=== PATIENT | female | born 1950 | race Caucasian/White ===

== ENCOUNTER → 2018-01-16 | Outpatient (CLI) | payer OTHER ==
[~2018-01-16] MED LIST: MULT-658 PO; None per pt
[2018-01-16 09:44] LABS: BASOPHILS # (AUTO) 0.03 x10^3/uL (0-0.1); BASOPHILS % (AUTO) 1 % (0-1); EOSINOPHILS # (AUTO) 0.15 x10^3/uL (0-0.4); EOSINOPHILS % (AUTO) 3 % (1-7); LYMPHOCYTES # (AUTO) 1.31 x10^3/uL (1-3.4); LYMPHOCYTES % (AUTO) 24 % (22-44); MD NO; MEAN CORPUSCULAR HEMOGLOBIN 32.5 pg (27.0-34.8); MEAN CORPUSCULAR HGB CONC 34.5 g/dL (32.4-35.8); MEAN CORPUSCULAR VOLUME 94.4 fL (80-100); MEAN PLATELET VOLUME 7.3 fL (7.4-10.4); MONOCYTES # (AUTO) 0.56 x10^3/uL (0.2-0.8); MONOCYTES % (AUTO) 11 % (2-9); NEUTROPHILS % (AUTO) 62 % (42-75); PLATELET COUNT 282 x10^3/uL (130-400); RED BLOOD COUNT 4.81 x10^6/uL (3.82-5.3)
[2018-01-16 10:01] LABS: ANION GAP 6 mmol/L (5-15); CALCIUM 9.9 mg/dL (8.5-10.1); CHLORIDE 101 mmol/L (98-107); CREATININE 0.78 mg/dL (0.55-1.02)
[2018-01-16 10:03] LABS: MICROSCOPIC INDICATED
[2018-01-16 10:08] LABS: INTERNATIONAL NORMALIZED RATIO 0.95 (0.93-1.1); PROTHROMBIN TIME 9.8 Seconds (9.6-11.5)
[2018-01-16 10:09] LABS: CULTURE INDICATED? YES
[2018-01-16 13:12] LABS: HEMOGLOBIN A1C 4.7 % (4.2-6.3)
== END | disposition home or self-care (01) ==
LOC: MERGE 08:30 → STAR 08:30
PROVIDERS: ATTEND Orthopaedic Surgery
DX: Z01.818 Encounter for other preprocedural examination (principal); M17.11 Unilateral primary osteoarthritis, right knee
CPT/HCPCS: 36415; 80048; 81001; 83036; 85025; 85610; 85730; 87081; 87086; 87806; 93005; G0475

== ENCOUNTER 2018-01-29 06:04 | Inpatient (IN) | payer OTHER ==
[~2018-01-29] VITALS: Ht 165.1 cm; Wt 62.1 kg
[2018-01-29] MEDS ORDERED: TRANEXAMIC ACID 100 MG/ML, 10ML ONE ×4 (06:49)
[2018-01-29] MEDS ORDERED: ROPIvacaine/PF 0.2%, 20 ML ONE (06:49)
[2018-01-29] MEDS ORDERED: KETOROLAC 60 MG/2 ML ONE (06:49)
[2018-01-29] MEDS ORDERED: EPINEPHRINE 1 MG/ML, 1ML ONE (06:50)
[2018-01-29] MEDS ORDERED: VANCOMYCIN PER PHARMACY MC ONE (06:58)
[2018-01-29] MEDS ORDERED: LACTATED RINGERS 1,000 ML IV SCH (07:02)
[2018-01-29] MEDS ORDERED: VANCOMYCIN PMX 1GM/200ML 200 ML IV ONE (07:30)
[2018-01-29] MEDS ORDERED: ACETAMINOPHEN 500 MG TABLET PO ONE (07:30)
[2018-01-29] MEDS ORDERED: PNEUMOCOCCAL VACC.PER PHARMACY IM ONE (07:30)
[2018-01-29] MEDS ORDERED: GABAPENTIN 300 MG CAPSULE PO ONE (07:30)
[2018-01-29] MEDS ORDERED: MIDAZOLAM 1 MG/ML, 2ML ONE (07:56)
[2018-01-29] MEDS ORDERED: FENTANYL PF 100 MCG/2ML ONE (07:57)
[2018-01-29] MEDS ORDERED: ONDANSETRON ODT 8 MG PO ONE (08:00)
[2018-01-29] MEDS ORDERED: OXYcodone IR 5MG TABLET PO ONE (08:00)
[2018-01-29] MEDS ORDERED: FAMOTIDINE 20 MG TABLET PO ONE (08:00)
[2018-01-29] MEDS ORDERED: DEXAMETHASONE 4 MG/ML, 1ML ONE (08:52)
[2018-01-29] MEDS ORDERED: CEFAZOLIN 1,000 MG ONE (08:52)
[2018-01-29] MEDS ORDERED: PROPOFOL 10 MG/ML, 20ML ONE (08:52)
[2018-01-29] MEDS ORDERED: ONDANSETRON 4 MG TABLET PO PRN (10:30)
[2018-01-29] MEDS ORDERED: HYDROcodone/APAP 7.5-325MG/15ML UDC PO PRN (10:30)
[2018-01-29] MEDS ORDERED: ALBUTEROL SULFATE 2.5 MG/3 ML NPPB PRN (10:30)
[2018-01-29] MEDS ORDERED: MEPERIDINE/PF 25MG/0.5ML IVPush PRN (10:30)
[2018-01-29] MEDS ORDERED: OXYcodone IR 5MG TABLET PO PRN (10:30)
[2018-01-29] MEDS ORDERED: hydrALAzine 20 MG/ML, 1ML IV PRN (10:30)
[2018-01-29] MEDS ORDERED: PROMETHAZINE 25 MG/ML, 1ML IV PRN (10:30)
[2018-01-29] MEDS ORDERED: DIPHENHYDRAMINE 50 MG CAPSULE PO PRN (10:30)
[2018-01-29] MEDS ORDERED: MIDAZOLAM 1 MG/ML, 2ML IV PRN (10:30)
[2018-01-29] MEDS ORDERED: LABETALOL 5MG/ML, 20ML IV PRN (10:30)
[2018-01-29] MEDS ORDERED: ONDANSETRON ODT 8 MG PO PRN (10:30)
[2018-01-29] MEDS ORDERED: HYDROmorphone 1 MG/ML, 1ML IV PRN ×2 (10:30)
[2018-01-29] MEDS ORDERED: TRANEXAMIC ACID 1,000 MG in SODIUM CHLORIDE 0.9% 100 ML IVPB ONE (10:30)
[2018-01-29] MEDS ORDERED: ONDANSETRON 2MG/ML, 2ML IV PRN (10:30)
[2018-01-29] MEDS ORDERED: FENTANYL PF 100 MCG/2ML IV PRN (10:30)
[2018-01-29] MEDS ORDERED: OXYcodone 5 MG/5 ML ORAL.SOL UDC PO PRN (10:30)
[2018-01-29] MEDS ORDERED: EPHEDRINE 50 MG/ML, 1ML IVPush PRN (10:30)
[2018-01-29] MEDS ORDERED: MAGNESIUM HYDROXIDE 8%, 30ML UDC PO PRN (10:30)
[2018-01-29] MEDS ORDERED: ACETAMINOPHEN 650 MG/20.3 ML UDC PO PRN (10:30)
[2018-01-29] MEDS ORDERED: DIAZEPAM 5 MG TABLET PO PRN (10:30)
[2018-01-29] MEDS ORDERED: SENNA/DOCUSATE TABLET PO PRN (10:30)
[2018-01-29 11:25] VITALS: BP 115/83
[2018-01-29] MEDS: D5%-0.45NACL+KCL 20MEQ 1,000 ML IV SCH ×2 (12:30→22:43)
[2018-01-29 14:10] VITALS: BP 110/75
[2018-01-29] MEDS: CEFAZOLIN PMX 1GM/50ML 50 ML IVPB SCH (18:13)
[2018-01-29] MEDS: ASPIRIN 81 MG TABLET EC PO SCH (18:13)
[2018-01-29 19:25] VITALS: BP 107/71
[2018-01-29] MEDS: DOCUSATE 100 MG CAPSULE PO SCH (21:11)
[2018-01-29 23:38] VITALS: BP 99/59
[2018-01-30] MEDS ORDERED: OXYC5TAB3 PO (00:15)
[2018-01-30] MEDS ORDERED: ASPI-496 PO (00:21)
[2018-01-30] MEDS ORDERED: DOCU-131 PO (00:22)
[2018-01-30] MEDS ORDERED: ONDA4TAB10 PO (00:23)
[2018-01-30] MEDS ORDERED: CELE200C PO (00:24)
[2018-01-30] MEDS ORDERED: TRAM50TA2 PO (00:26)
[2018-01-30] MEDS ORDERED: DIAZ5TAB PO (00:28)
[2018-01-30] MEDS: CEFAZOLIN PMX 1GM/50ML 50 ML IVPB SCH (02:24)
[2018-01-30 02:39] VITALS: BP 110/67
[2018-01-30] MEDS: ASPIRIN 81 MG TABLET EC PO SCH (05:01)
[2018-01-30] MEDS ORDERED: DEXAMETHASONE 4 MG/ML, 1ML IVPush SCH (06:00)
[2018-01-30] MEDS: D5%-0.45NACL+KCL 20MEQ 1,000 ML IV SCH (06:18)
[2018-01-30] MEDS ORDERED: PNEUMOCOCCAL 23 VACCINE IM-VACC ONE (06:30)
[2018-01-30 07:21] VITALS: BP 110/75
[2018-01-30] MEDS: DOCUSATE 100 MG CAPSULE PO SCH (08:04)
[2018-01-30] MEDS ORDERED: TAMSULOSIN 0.4 MG CAP.ER.24H PO SCH (09:00)
[2018-01-30] MEDS ORDERED: KETOROLAC 30 MG/1 ML IV SCH (10:30)
== END 2018-01-30 11:06 | disposition home or self-care (01) | DRG 470 ==
LOC: OUT 06:04 → MERGE 07:30 → ORIP 10:18 → 4NOR 11:21
PROVIDERS: ADMIT Orthopaedic Surgery; ATTEND Orthopaedic Surgery
PROC: 0SRC069 Replacement of Right Knee Joint with Oxidized Zirconium on Polyethylene Synthetic Substitute, Cemented, Open Approach (ICD-10-PCS; principal; 2018-01-29 08:30)
DX: M17.31 Unilateral post-traumatic osteoarthritis, right knee (principal)
CPT/HCPCS: 36415; 85014; 85018; 90732; C1713; J0171; J0690; J1100; J1885; J2250; J2704; J2795; J3010; Q0162; C1776; J3480; J7120